=== PATIENT | female | born 1975 | race Caucasian/White ===

== ENCOUNTER 2020-05-07 08:18 | Emergency (ER) | payer OTHER ==
[~2020-05-07] VITALS: Ht 160 cm; Wt 93.0 kg
[~2020-05-07 08:18] MED LIST: NEOPOLHYDS OT; PROM25 PO
[2020-05-07 09:54] LABS: BASOPHILS ABSOLUTE AUTO 0.05 K/mm3 (0.00-0.23); BASOPHILS PERCENT AUTO 1 % (0-2); EOSINOPHILS ABSOLUTE AUTO 0.07 K/mm3 (0.00-0.68); EOSINOPHILS PERCENT AUTO 1 % (0-6); Hematocrit 42.5 % (33.0-51.0); Hemoglobin 13.8 g/dL (11.5-16.0); IMMATURE GRAN ABSOLUTE AUTO 0.02 K/mm3 (0.00-0.10); IMMATURE GRAN PERCENT AUTO 0 % (0-1); LYMPHOCYTES PERCENT AUTO 17 % (21-46); MONOCYTES ABSOLUTE AUTO 0.66 K/mm3 (0.16-1.47); MONOCYTES PERCENT AUTO 7 % (4-13); Mean Corpuscular HGB 30.2 pg (26.0-34.0); Mean Corpuscular HGB Conc 32.5 g/dL (31.5-36.5); Mean Corpuscular Volume 93 fL (80-100); NEUTROPHILS ABSOLUTE AUTO 6.98 K/mm3 (1.96-9.15); NEUTROPHILS PERCENT AUTO 75 % (41-73); RDW Coefficient Variation 12.6 % (11.7-14.2); RDW Standard Deviation 42.7 fL (35.1-46.3); Red Blood Cell Count 4.57 M/mm3 (3.80-5.20); White Blood Cell Count 9.38 K/mm3 (4.00-11.30)
[2020-05-07 10:10] LABS: Mean Platelet Volume 10.2 fL (9.1-12.4); Platelet Count 229 K/mm3 (150-400)
[2020-05-07 10:11] LABS: Alanine Aminotransfer (ALT/SGP 19 U/L (12-78); Albumin/Globulin Ratio 0.7 (0.8-1.8); Alk Phos 78 U/L (50-136); Anion Gap 5 mmol/L (6-16); Aspartate Aminotrans (AST/SGOT 13 U/L (12-37); Bilirubin, Total 0.9 mg/dL (0.1-1.0); Blood Urea Nitrogen 13 mg/dL (8-24); Bun/Creatinine Ratio 16.4 (12.0-20.0); CO2, Blood 25 mmol/L (21-32); Calcium, Blood 8.3 mg/dL (8.5-10.1); Chloride, Blood 111 mmol/L (98-108); Creatinine, Blood 0.79 mg/dL (0.40-1.00); Globulin, Blood 4.1 g/dL (2.2-4.0); Glomerular Filtration Rate >60 (60-); Glucose, Blood 85 mg/dL (70-99); Potassium, Blood 4.1 mmol/L (3.5-5.5); Sodium, Blood 141 mmol/L (136-145); Total Protein, Blood 7.1 g/dL (6.4-8.2)
[2020-05-07] MEDS ORDERED: CLIN300 PO (12:00)
[2020-05-07] MEDS ORDERED: PRED20 PO (12:01)
== END 2020-05-07 12:19 | disposition home or self-care (01) ==
LOC: ER 08:18
PROVIDERS: Emergency Medicine
DX: K04.7 Periapical abscess without sinus (principal); L03.211 Cellulitis of face; Z88.0 Allergy status to penicillin
CPT/HCPCS: 70487; 80053; 85025; 96365; 96375; 99283-25; J1100; Q9967

== ENCOUNTER 2024-02-13 10:23 | Day surgery (SDC) | payer OTHER ==
[~2024-02-13] VITALS: Ht 160 cm; Wt 101.9 kg
[~2024-02-13 10:23] MED LIST changes: +CLIN300 PO; +PRED20 PO
[2024-02-13] MEDS ORDERED: Lidocaine HCl/Pf 1% 5 ML VIAL ONE (10:53)
[2024-02-13] MEDS ORDERED: Lactated Ringer's 1,000 ML IV ONE (11:08)
[2024-02-13] MEDS ORDERED: Clindamycin 900mg in D5W 50ML 50 ML IV ONE (11:24)
[2024-02-13] MEDS ORDERED: propofoL 60 ML IV ONE (11:32)
[2024-02-13] MEDS ORDERED: FentaNYL Citrate 50 MCG/ML 2 ML Injection ONE (11:32)
[2024-02-13] MEDS ORDERED: Dexamethasone Sod Phos 10 MG/ML 1ML VIAL ONE (11:32)
[2024-02-13] MEDS ORDERED: Ondansetron HCl 2 MG / ML 2ML Vial ONE (11:32)
[2024-02-13] MEDS ORDERED: Scopolamine Hydrobromide Patch ONE (11:33)
[2024-02-13] MEDS ORDERED: Midazolam HCl 1MG / ML 2ML Vial ONE (11:33)
[2024-02-13] MEDS ORDERED: Ketorolac Tromethamine 30mg Vial ONE (11:38)
[2024-02-13] MEDS ORDERED: Lidocaine HCl 1% 20 ML MDV INJ ONE (12:05)
[2024-02-13] MEDS ORDERED: Bupivacaine 0.5% HCl 5 MG/ML 30MLVIAL INJ ONE (12:06)
[2024-02-13] MEDS ORDERED: Phenylephrine HCl 100 MCG/ML-NS 10MLSYR (1MG/10ML) ONE (12:44)
--- NOTE | 2024-02-13 13:20 | NUR ---
02/13/[address] AT BEDSIDE. PT ANXIETY. DOING OKAY - STABLE JUST SCARED. DIZZY AND YUCKY...
[2024-02-13 13:27] VITALS: BP 99/61
--- NOTE | 2024-02-13 13:49 | NUR ---
02/13/24 1348 LEN[address] PT AND 2 CHILDREN AT BEDSIDE.
[2024-02-13] MEDS ORDERED: Ibuprofen 600 MG Tab ONE (14:11)
== END 2024-02-13 14:31 | disposition home or self-care (01) ==
LOC: ORSCSDS 10:23
PROVIDERS: Podiatrist
PROC: 0QSQ04Z Reposition Right Toe Phalanx with Internal Fixation Device, Open Approach (ICD-10-PCS; principal; 2024-02-13 11:30)
DX: M20.11 Hallux valgus (acquired), right foot (principal); M79.671 Pain in right foot; Z68.39 Body mass index [BMI] 39.0-39.9, adult
CPT/HCPCS: A9270; C1713; J1100; J1885; J2001; J2250; J2371; J2405; J2704; J3010